=== PATIENT | male | born 1995 | race African-American/Black ===

== ENCOUNTER 2017-07-21 18:32 | Emergency (ER) | payer MEDICAID, MEDICARE ==
[~2017-07-21] VITALS: Ht 180.3 cm; Wt 62.0 kg
[2017-07-21] MEDS ORDERED: ACETAMINOPHEN 325MG TABLET PO ONE (20:45)
[2017-07-21] MEDS ORDERED: IBUPROFEN 400MG TABLET PO ONE (20:45)
[2017-07-21 22:49] VITALS: BP 119/60
== END 2017-07-21 23:21 | disposition home or self-care (01) ==
LOC: ER 18:32
DX: S92.321A Displaced fracture of second metatarsal bone, right foot, initial encounter for closed fracture (principal); W20.8XXA Other cause of strike by thrown, projected or falling object, initial encounter; Y93.89 Activity, other specified; Y92.89 Other specified places as the place of occurrence of the external cause; F17.210 Nicotine dependence, cigarettes, uncomplicated; F12.90 Cannabis use, unspecified, uncomplicated
CPT/HCPCS: 29515; 73600; 73620; 99284